=== PATIENT | male | born 2000 | race Caucasian/White ===

== ENCOUNTER 2020-12-20 03:48 | Observation (INO) ==
[2020-12-20] MEDS ORDERED: MetroNIDAZOLE 500 MG/100 ML 500 MG/100 ML BAG IVPB ONE (04:54)
[2020-12-20] MEDS ORDERED: Ondansetron 4 MG/2 ML VIAL IVP PRN (05:58)
[2020-12-20 06:00] VITALS: BP 127/73
[2020-12-20] MEDS ORDERED: 0.9 % Sodium Chloride 1,000 ML IVC SCH (06:00)
[2020-12-20 07:04] LABS: Influenza A PCR Negative (Negative); Influenza B PCR Negative (Negative); Resp. Syncytial Virus PCR Negative (Negative)
[2020-12-20 07:17] LABS: SARS-CoV-2 by PCR (In House) Negative (Negative)
[2020-12-20] MEDS ORDERED: MetroNIDAZOLE 500 MG/100 ML 500 MG/100 ML BAG IVPB SCH (12:00)
== END 2020-12-20 07:10 | disposition left against medical advice (07) ==
LOC: EMEROOARM 03:48 → 3BNU 03:48
PROVIDERS: ADMIT Surgery; ATTEND Surgery